=== PATIENT | male | born 1965 | race Caucasian/White ===

== ENCOUNTER 2020-12-23 20:45 | Emergency (ER) | payer OTHER, BC, SELFPAY ==
--- NOTE | ~2020-12-23 | CT_ITS ---
EXAMINATION: CT HEAD WITHOUT CONTRAST CT CERVICAL SPINE WITHOUT CONTRAST CLINICAL INFORMATION: Fall. COMPARISON: None available. TECHNIQUE: Contiguous axial imaging was performed from the skull base to vertex without intravenous administration of contrast. Contiguous axial imaging was performed from the upper chest through the skull base without intravenous administration of contrast. Coronal and sagittal reformats were obtained at the acquisition workstation. This CT examination was performed using dose optimization techniques as appropriate, variously including the following: *Automated exposure control. *Adjustment of mA and/or kV according to patient size (this includes techniques or standardized protocols for targeted exams where dose is matched to indication/reason for exam; i.e. extremities or head). *Use of iterative reconstruction technique. DLP: 1655 mGy-cm FINDINGS: Head: There is no evidence of acute intracranial hemorrhage or edematous territorial infarction. A few foci of hypoattenuation in the periventricular and deep white matter are consistent with mild microangiopathy. Lacunar infarct of the left thalamus. Corrales-white matter differentiation is preserved. The ventricles are normal in size and configuration. No evidence for obstructive hydrocephalus. No abnormal mass effect or midline shift. No extra-axial fluid collections. No acute soft tissue or osseous abnormalities. The mastoid air cells and paranasal sinuses are clear. Cervical Spine: Exam is partially limited by motion artifact. The atlantooccipital and atlantoaxial articulations remain well aligned. Straightening of the normal cervical lordosis. Otherwise, there is anatomic alignment of the vertebral bodies and posterior elements. No evidence of acute fracture or subluxation. The vertebral body heights are maintained. Moderate degenerative disc disease from C4-C7 with disc-osteophyte complex formation. Facet and uncovertebral joint arthropathy leads osseous encroachment on the neural foramina from C3-C6. There is no prevertebral soft tissue swelling. The thyroid gland and remaining cervical soft tissues are normal in appearance. Mild paraseptal emphysema demonstrated in the visualized lung apices. CT/CT cervical spine wo con IMPRESSION: 1. No evidence of acute intracranial hemorrhage or edematous territorial infarction. Mild underlying microangiopathy. 2. No evidence of acute fracture or traumatic subluxation of the cervical spine. Mild to moderate degenerative spondyloarthropathy of the cervical spine.
--- NOTE | ~2020-12-23 | XR_ITS ---
EXAMINATION: XR chest 1V CLINICAL INFORMATION: Syncope COMPARISON: None TECHNIQUE: XR chest 1V Tubes and lines: None Lungs and pleura: Both lungs are clear. Heart and mediastinum: Postsurgical changes of from prior sternotomy.. Bones/soft tissue: Skeletal structures included are normal for patient's age. XR/XR chest 1V IMPRESSION: No radiographic evidence of acute cardiopulmonary disease.
--- NOTE | 2020-12-23 20:52 | ECG_ITS ---
Test Reason : SYNCOPE Blood Pressure : / mmHG Vent. Rate : 086 BPM Atrial Rate : 086 BPM P-R Int : 194 ms QRS Dur : 124 ms QT Int : 414 ms P-R-T Axes : 016 -26 113 degrees QTc Int : 495 ms Normal sinus rhythm Possible Left atrial enlargement Left ventricular hypertrophy with QRS widening and repolarization abnormality Abnormal ECG No previous ECGs available Referred By: Generic ED Physician Electronically Signed By:SONG STOVER
[2020-12-23 20:56] VITALS: BP 119/58; PULSE 86; RESP 18; TEMP 36.7; O2SAT 96; BMI 35.9
[2020-12-23 21:41] LABS: MANUAL DIFF FLAG NO
[2020-12-23 21:43] LABS: Basophils Absolute Auto 0.1 X10*3/uL (0.0-0.2); Basophils Percent Auto 0.9 % (0-2); Eosinophils Absolute Auto 0.1 X10*3/uL (0.0-0.4); Eosinophils Percent Auto 1.8 % (0-4); Hematocrit 41.1 % (42-52); Imm Gran Abs Auto 0.03 X10*3/uL (0.00-0.03); Imm Gran Pct Auto 0.4 % (0.0-0.4); Lymphocytes Absolute Auto 2.7 X10*3/uL (1.2-4.9); Mean Corpuscular HGB Conc 34.1 g/dl (31.0-36.0); Mean Corpuscular Hemoglobin 32.8 pg (27.0-33.0); Mean Corpuscular Volume 96.3 fL (80-98); Monocytes Absolute Auto 0.5 X10*3/uL (0.1-1.2); Neutrophils Absolute Auto 3.3 X10*3/uL (2.0-8.3); Neutrophils Percent Auto 49.9 % (45-73); Platelet Count 237 X10*3/uL (160-400); Red Blood Count 4.27 X10*6/uL (4.60-5.80); Red Cell Distribution Width 13.2 % (11.0-16.0); White Blood Count 6.7 X10*3/uL (4.8-10.8)
[2020-12-23 22:05] VITALS: BP 128/64; PULSE 81; RESP 16; O2SAT 97
[2020-12-23 22:07] LABS: Lactic Acid 1.8 mmol/L (0.5-2.0)
[2020-12-23 22:09] LABS: Ethanol 331 mg/dL
[2020-12-23 22:10] LABS: Anion Gap 16 (12-20); Blood Urea Nitrogen 21 mg/dL (9-16); Calcium 8.7 mg/dL (8.4-10.2); Carbon Dioxide 22 mmol/L (22-29); Chloride 107 mmol/L (96-108); Creatinine Clr Calc Pharmacy 90.1; Estimated Glomerular Filt Rate > 60; Glucose Random 142 mg/dL (60-115); Potassium 3.9 mmol/L (3.3-5.1); Sodium 141 mmol/L (135-145)
[2020-12-23 22:18] LABS: Troponin-I High Sensitivity 26.3 ng/L (<3.5-35.0)
--- NOTE | 2020-12-23 22:39 | PC.NURSE ---
pt requesting to leave multiple times, has been cooperative and redirectible. pt ambulatory to bathroom with unsteady gait, incontinent of urine. pt refused to change into hospital clothing. at bedside, reports pt not ready for discharge yet.
--- NOTE | 2020-12-23 22:48 | ED.SYNCOPE ---
HPI - Syncope General Chief Complaint: Fall Stated Complaint: syncope/etoh/fall Time Seen by Provider: 12/23/20 22:41 Source: patient Mode of arrival: EMS History of Present Illness HPI narrative: 55-year-old male with significant past medical history for CAD and currently on Eliquis who states that he was at his granddaughter's communion this evening, had a couple of drinks, and then when he was exiting his vehicle he misstepped and fell to the ground. Patient denies any head strike or loss of consciousness, however his endorses that she witnessed his head hitting the tire and that he was unresponsive for approximately 15 minutes. Patient has significant past medical history is for triple bypass this past July. Patient keep stating that he does not know why he is here. Related Data Home Medications Medication Instructions Recorded Confirmed amiodarone 200 mg tablet 0 mg PO 08/24/20 apixaban 5 mg tablet 5 mg PO BID 08/24/20 atorvastatin 40 mg tablet mg PO 08/24/20 omeprazole 20 mg capsule,delayed 20 mg PO DAILY 08/24/20 release Allergies Allergy/AdvReac Type Severity Reaction Status Date / Time colchicine AdvReac swollen Verified 08/24/20 16:45 lips Review of Systems Review of Systems: Pertinent positives and negatives as stated in HPI and 10 point review of systems is otherwise negative. [facility] Past Medical History Source: nursing notes reviewed Medical History Hypertension Surgical History S/P triple vessel bypass Social History Social History Advance Directives: No Advance Directives Information Provided: No Physical Exam Vital Signs: Vital Signs: Last Vital Signs Temp 98.1 F 12/23/20 20:56 Pulse 81 12/23/20 22:05 Resp 16 12/23/20 22:05 BP 128/64 12/23/20 22:05 Pulse Ox 97 12/23/20 22:05 Body Mass Index 35.9 VITAL SIGNS: Reviewed. GENERAL: Patient is noted to have urine stained pants, well developed, well nourished, in no acute distress. HEAD: Normocephalic/atraumatic, EYES: PERRLA, EOMI EARS: Ext canals without abnormality NOSE: Nares patent bilateral OROPHARYNX: no oral lesions noted, posterior pharynx clear NECK: Supple, no adenopathy LUNGS: Normal breath sounds. No adventitious sounds or accessory muscle use. SpO2<97> CARDIOVASCULAR: Regular rate and rhythm without noted murmurs ABDOMEN: Soft, non-tender, non-distended with bowel sounds. NEUROLOGIC: Alert and oriented x 3. Strength and sensation to light touch were grossly intact x 4. Course Course Course Narrative: 55-year-old male with history and clinical presentation concerning for syncope despite the reported history from him as he has significant swelling of the front of his pants consistent with loss of continence. Review of all investigations negative for acute findings other than troponin level of 26.3 which will be repeated in 3 hours. Patient denies any chest pain and there is no EKG for comparison. MDM - Syncope Lab Data Result diagrams: 12/23/20 21:35 12/23/20 21:36 Labs: Lab Results 12/23/20 12/23/20 12/23/20 Range/Units 21:35 21:35 21:35 WBC 6.7 (4.8-10.8) X10*3/uL RBC 4.27 L (4.60-5.80) X10*6/uL Hgb 14.0 (14.0-18.0) g/dl Hct 41.1 L (42-52) % MCV 96.3 (80-98) fL MCH 32.8 (27.0-33.0) pg MCHC 34.1 (31.0-36.0) g/dl RDW 13.2 (11.0-16.0) % Plt Count 237 (160-400) X10*3/uL MPV 9.0 L (9.4-12.4) fL Immature Gran % (Auto) 0.4 (0.0-0.4) % Neut % (Auto) 49.9 (45-73) % Lymph % (Auto) 40.0 (20-40) % [place] % (Auto) 7.0 (2-11) % Eos % (Auto) 1.8 (0-4) % Baso % (Auto) 0.9 (0-2) % Lymph # (Auto) 2.7 (1.2-4.9) X10*3/uL [place] # (Auto) 0.5 (0.1-1.2) X10*3/uL Eos # (Auto) 0.1 (0.0-0.4) X10*3/uL Baso # (Auto) 0.1 (0.0-0.2) X10*3/uL Abs Immat Gran (auto) 0.03 (0.00-0.03) X10*3/uL Absolute Neuts (auto) 3.3 (2.0-8.3) X10*3/uL Absolute Nucleated RBC 0.000 (0.0-0.012) X10*3/uL Nucleated RBC % (auto) 0.0 (0.0-0.2) /100WBC Hold Blue Top SEE NOTE Sodium (135-145) mmol/L Potassium (3.3-5.1) mmol/L Chloride (96-108) mmol/L Carbon Dioxide (22-29) mmol/L Anion Gap (12-20) BUN (9-16) mg/dL Creatinine (0.5-1.4) mg/dL Estim Creat Clear Calc Estimated GFR Random Glucose (60-115) mg/dL Lactic Acid (0.5-2.0) mmol/L Calcium (8.4-10.2) mg/dL Troponin I High Sens 26.3 (<3.5-35.0) ng/L Ethyl Alcohol mg/dL 12/23/20 12/23/20 12/23/20 Range/Units 21:35 21:35 21:36 WBC (4.8-10.8) X10*3/uL RBC (4.60-5.80) X10*6/uL Hgb (14.0-18.0) g/dl Hct (42-52) % MCV (80-98) fL MCH (27.0-33.0) pg MCHC (31.0-36.0) g/dl RDW (11.0-16.0) % Plt Count (160-400) X10*3/uL MPV (9.4-12.4) fL Immature Gran % (Auto) (0.0-0.4) % Neut % (Auto) (45-73) % Lymph % (Auto) (20-40) % [place] % (Auto) (2-11) % Eos % (Auto) (0-4) % Baso % (Auto) (0-2) % Lymph # (Auto) (1.2-4.9) X10*3/uL [place] # (Auto) (0.1-1.2) X10*3/uL Eos # (Auto) (0.0-0.4) X10*3/uL Baso # (Auto) (0.0-0.2) X10*3/uL Abs Immat Gran (auto) (0.00-0.03) X10*3/uL Absolute Neuts (auto) (2.0-8.3) X10*3/uL Absolute Nucleated RBC (0.0-0.012) X10*3/uL Nucleated RBC % (auto) (0.0-0.2) /100WBC Hold Blue Top Sodium 141 (135-145) mmol/L Potassium 3.9 (3.3-5.1) mmol/L Chloride 107 (96-108) mmol/L Carbon Dioxide 22 (22-29) mmol/L Anion Gap 16 (12-20) BUN 21 H (9-16) mg/dL Creatinine 1.14 (0.5-1.4) mg/dL Estim Creat Clear Calc 90.1 Estimated GFR > 60 Random Glucose 142 H (60-115) mg/dL Lactic Acid 1.8 (0.5-2.0) mmol/L Calcium 8.7 (8.4-10.2) mg/dL Troponin I High Sens (<3.5-35.0) ng/L Ethyl Alcohol 331 H* mg/dL ECG Data Attestation: I personally reviewed and interpreted this ECG as follows: Prior ECG tracings: not available for review Interpretation: Normal sinus rhythm, HR -86, no evidence of acute ischemia, DE is within normal limits. Discharge Plan Discharge Clinical Impression: Syncope, Alcohol intoxication Patient Disposition: Left Against Medical Advice Instructions: Syncope in Older Adults (ED) Additional Instructions: Follow-up with your primary care provider by calling the office 1st thing Friday morning. Return to the emergency department for any acute worsening of your symptoms. Prescriptions: No Action atorvastatin 40 mg tablet PO RF: 0 omeprazole 20 mg capsule,delayed release(DR/EC) 20 mg PO DAILY RF: 0 Eliquis 5 mg tablet 5 mg PO BID RF: 0 amiodarone 200 mg tablet 0 mg PO RF: 0 Referrals: Jesus Fortune MD [Primary Care Provider] - 2 days Stand Alone Forms: Against Medical Advice
--- NOTE | 2020-12-23 23:31 | PC.NURSE ---
pt walked out of room to , was brought back. pt understands that he needs a repeat troponin, but does not want to stay. pt understands that he will be leaving AMA and is willing to take the risk. called, no answer. phone # [phone] maria l.
--- NOTE | 2020-12-24 01:07 | PC.NURSE ---
multiple rn including this automotive service writer attempted to find a ride home for the patient many attempts made to lyft and taxis with no response. pt left [facility] and understood risks and dangers for leaving [facility].
== END 2020-12-24 01:20 | disposition left against medical advice (07) ==
PROVIDERS: Emergency Medicine; Emergency Provider Student in an Organized Health Care Education/Training Program; PCP Internal Medicine
DX: R55 Syncope and collapse (principal); F10.920 Alcohol use, unspecified with intoxication, uncomplicated; Y90.8 Blood alcohol level of 240 mg/100 ml or more; I10 Essential (primary) hypertension; Z79.01 Long term (current) use of anticoagulants
CPT/HCPCS: 36415; 70450; 71045; 72125; 80048; 80320; 83605; 84484; 85025; 93005; 99284

== ENCOUNTER 2021-12-23 22:10 | Emergency (ER) | payer OTHER, SELFPAY ==
--- NOTE | ~2021-12-23 | CT_ITS ---
EXAMINATION: CT HEAD WITHOUT CONTRAST CLINICAL INFORMATION: Fall. COMPARISON: 12/23/2020 TECHNIQUE: Contiguous axial imaging was performed from the skull base to vertex without intravenous administration of contrast. This CT examination was performed using dose optimization techniques as appropriate, variously including the following: *Automated exposure control *Adjustment of mA and/or kV according to patient size (this includes techniques or standardized protocols for targeted exams where dose is matched to indication/reason for exam; i.e. extremities or head) *Use of iterative reconstruction technique DLP: 864 mGy-cm FINDINGS: There is no evidence of acute intracranial hemorrhage or territorial infarction. No abnormal mass effect or midline shift is seen. [place]es to white matter differentiation is well preserved. No extra-axial fluid collections are identified. The ventricles are normal in size. There is no abnormal attenuation within the brain parenchyma. The osseous structures and soft tissues are normal. The mastoid air cells and visualized portions of the paranasal sinuses are well aerated. CT/CT head/brain wo con IMPRESSION: No acute intracranial pathology.
[2021-12-23 22:16] VITALS: BP 137/68; PULSE 61; RESP 18; TEMP 36.4; O2SAT 96; BMI 36.8
[2021-12-23 22:20] VITALS: BP 150/82; PULSE 58
--- NOTE | 2021-12-23 22:51 | ED_ITS ---
HPI - Fall General Chief Complaint: Fall Stated Complaint: Fall Time Seen by Provider: 12/23/21 22:31 Source: patient and EMS Mode of arrival: EMS Limitations: no limitations History of Present Illness HPI Narrative: Patient comes to the emergency room after falling twice. Patient states that he has a situation going on at home, which she is upset about. Patient admits to drinking alcohol and losing his balance and falling twice. Patient did not lose consciousness. Patient is on Xarelto and therefore came to emergency room. Patient states he has no headache, no lacerations or abrasions, no neck pain, patient is asymptomatic. Related Data Home Medications Medication Instructions Recorded Confirmed amiodarone 200 mg tablet 0 mg PO 08/24/20 apixaban 5 mg tablet 5 mg PO BID 08/24/20 atorvastatin 40 mg tablet mg PO 08/24/20 omeprazole 20 mg capsule,delayed 20 mg PO DAILY 08/24/20 release Allergies Allergy/AdvReac Type Severity Reaction Status Date / Time colchicine AdvReac swollen Verified 12/23/21 22:16 lips Review of Systems Review of Systems: Constitutional : No Weight loss, No Fever, No Chills, No Night Sweats, No Fatigue, No Malaise ENT/Mouth : No Hearing loss, No Ear Pain, No Nasal Congestion, No Sinus Pain, No Hoarseness, No sore throat, No Rhinorrhea, No Swallowing Difficulty Eyes: No Eye Pain, No Swelling, No Redness, No Foreign Body, No Discharge, No Vision Changes Cardiovascular : No Chest Pain, No SOB, No Dyspnea on Exertion, No Orthopnea, No Edema, No Palpitations Respiratory : No Cough, No Sputum, No Wheezing, No Smoke Exposure, No Dyspnea Gastrointestinal : No Nausea, No Vomiting, No Diarrhea, No Constipation, No abdominal Pain, No Hematochezia, No Melena Genitourinary : no irregular bleeding, No Dysuria, No Urinary Frequency, No Hematuria, No Urinary Incontinence, No Urgency, No Flank Pain, No Urinary Flow Changes, No Hesitancy Musculoskeletal : No joint pain, No Myalgias, No Joint Swelling Skin : No Skin Lesions, No rash Neuro : No Weakness, No Numbness, No Paresthesias, No Loss of Consciousness, No Dizziness, No Headache Psych : No Anxiety/Panic, No Depression, No SI/HI/AH/VH, No Social Issues, Heme/Lymph: No Bruising, No Bleeding,No Lymphadenopathy Endocrine : No Polyuria, No Polydipsia, No Temperature Intolerance [facility] Past Medical History Medical History Hypertension Surgical History S/P triple vessel bypass Social History Social History Alcohol intake: current Alcohol intake frequency: 0-2 drinks per day Alcohol type: wine Patient Tobacco Use Status: Never used Tobacco Use of substances other than those prescribed or required for medical reasons: No Advance Directives: No Advance Directives Information Provided: No Physical Exam Vital Signs: Vital Signs: Last Vital Signs Temp 97.5 F 12/23/21 22:16 Pulse 61 12/23/21 22:16 Resp 18 12/23/21 22:16 BP 137/68 12/23/21 22:16 Pulse Ox 96 12/23/21 22:16 BMI result Body Mass Index 36.8 Const: Other: Appearance: Alert. Oriented X3. No acute distress. Eyes: Pupils equal, round and reactive to light. ENT: Pharynx normal. Neck: Normal inspection. Neck supple. No lymph nodes noted. No crepitus CVS: Normal heart rate and rhythm. Pulses normal. Normal S1 and S2 Respiratory: No respiratory distress. Breath sounds normal. No Wheezing. No rales Abdomen: Soft and nontender. No rigidity. No distention. Skin: Skin warm and dry. Normal skin color. Normal skin turgor. Extremities: No lower extremity edema. No Lacerations. No Rash Neuro: Oriented X 3. No motor deficit. No sensory deficit. Moving all extremities. No slurred speech. CN 2 through 12 grossly intact Psych: calm, cooperative, normal affect Course Course Course Narrative: Patient is clinically sober, alert and oriented x3, ambulatory with steady gait and unassisted. CT scan report from Radiology pending. When I went to look for the patient to discuss his CT scans, patient had already eloped MDM - Fall Imaging Data Head CT: Radiologist's impression: FINDINGS: There is no evidence of acute intracranial hemorrhage or territorial infarction. No abnormal mass effect or midline shift is seen. [place]rales to white matter differentiation is well preserved. No extra-axial fluid collections are identified. The ventricles are normal in size. There is no abnormal attenuation within the brain parenchyma. The osseous structures and soft tissues are normal. The mastoid air cells and visualized portions of the paranasal sinuses are well aerated. ? CT/CT head/brain wo con IMPRESSION: No acute intracranial pathology. Discharge Plan Discharge Clinical Impression: Fall, Head injury Patient Disposition: Elopement Instructions: Head Injury (ED) Additional Instructions: Please follow-up with your primary care physician tomorrow. If you have any worsening or new symptoms, please return to the emergency room or call 911 Prescriptions: No Action atorvastatin 40 mg tablet PO 0RF omeprazole 20 mg capsule,delayed release(DR/EC) 20 mg PO DAILY 0RF Eliquis 5 mg tablet 5 mg PO BID 0RF amiodarone 200 mg tablet 0 mg PO 0RF
--- NOTE | 2021-12-23 23:20 | PC.NURSE ---
This patient was seen by ER staff leaving the ED, gait steady, no distress, pt calm. I did not witness this patient eloping.
== END 2021-12-23 23:22 | disposition left against medical advice (07) ==
PROVIDERS: Emergency Provider Emergency Medicine; PCP Family Medicine Addiction Medicine
DX: S09.90XA Unspecified injury of head, initial encounter (principal); W01.0XXA Fall on same level from slipping, tripping and stumbling without subsequent striking against object, initial encounter; Y93.9 Activity, unspecified; Y92.9 Unspecified place or not applicable; Y99.9 Unspecified external cause status; Z79.899 Other long term (current) drug therapy; Z79.01 Long term (current) use of anticoagulants
CPT/HCPCS: 70450; 99284